=== PATIENT | female | born 1980 | race Caucasian/White ===

== ENCOUNTER 2016-11-02 14:41 | Emergency (ER) | payer OTHER ==
--- NOTE | 2016-11-02 16:46 | DIAGNOSTIC IMAGING REPORT ---
PROCEDURE: XR CHEST 1 VIEW INDICATION: NEAR SYNCOPE TECHNIQUE: Portable AP view 04:30 p.m. COMPARISON: None. FINDINGS: Lungs are clear. Heart and mediastinum are normal. Thorax is normal. Postop Stewrad rods IMPRESSION: 1. No acute disease
--- NOTE | 2016-11-02 19:23 | ED CLINICAL REPORT ---
Clinical Report - Physicians/Mid Levels [facility] [address] [place] [address] 11/02/2016 14:50 Patient: MADHAV ST Time Seen: 1442; initial patient contact, initial documentation, patient care assumed. Arrived- By private vehicle. Historian- patient. HISTORY OF PRESENT ILLNESS Chief Complaint: DIZZINESS and NEAR-SYNCOPE. Severity described as moderate at its maximum. When seen in the E.D., it was gone. Modifying factors- relieved by nothing. Not worsened by anything. This started about 2 - 3 days ago and is now gone. It was abrupt in onset and has been intermittent. Not described as a sense of rotation, movement or confusion or feeling faint or weak all over. Described as sense of falling and feeling off balance and light-headed. No nausea, vomiting or tinnitus. (states she is having these random episodes where she will be fine one minute and then the next feel like she has to brace herself because she is going out pt admitted to taking x2 325mg asa q 2 hrs every day, around the clock for chronic back pain). Similar symptoms previously: None. Recent medical care: Not recently seen/assessed. REVIEW OF SYSTEMS No headache, double vision, weakness, fainting episodes or head injury. No chest pain, palpitations, numbness, fever or difficulty breathing. All systems otherwise negative, except as recorded above. PAST HISTORY See nurses notes. ( ADDITIONAL SURGERIES: Adrenalectomy. Cardiac ablation. Cholecystectomy. Kidney repair. Laparoscopy. Pacer then removal. Spinal fusion. Thyroid Surgery. --14:28 Roz Bower R.N.). SOCIAL HISTORY Never smoker. No alcohol use or drug use. No recent travel. Residence: working here as traveling nurse, her drs are back home in [place] Is an out of state resident. FAMILY HISTORY Negative. ADDITIONAL NOTES The nursing notes have been reviewed with agreement regarding the chief complaint, HPI, ROS, PMH and patient medications and allergies. PHYSICAL EXAM Vital Signs: 11/02/2016 14:24 BP: 121/78. HR: 86. RR: 16. O2 saturation: 100%. Temp: 98.1 F. Have been reviewed as normal and appear to be correct. Appearance: Alert. No acute distress. Eyes: Pupils equal, round and reactive to light. No nystagmus. Extraocular movements normal. ENT: Normal ENT inspection. TM's normal. Moist mucous membranes. Pharynx normal. Neck: Normal inspection. Neck supple. CVS: Normal heart rate and rhythm. Heart sounds normal. Pulses normal. Respiratory: No respiratory distress. Breath sounds normal. Back: Normal inspection. (tens unit in place). Skin: Skin warm and dry. Normal skin color. No rash. Normal skin turgor. Extremities: Extremities exhibit normal ROM. No lower extremity edema. Neuro: Alert. Oriented X 3. Mood/affect normal. Speech normal. Cranial nerves normal (as tested). No cerebellar findings. No motor deficit. No sensory deficit. LABS, X-RAYS, AND EKG EKG: EKG time: (1430). No acute process. No acute ischemia. Normal EKG. Rate: 92. Normal EKG. The study has been interpreted contemporaneously by me (and dr schwartz). The EKG appears to be a good tracing. Interpretation time: 1453. Chest X-ray: Normal Chest X-Ray. (IMPRESSION: 1. No acute disease Electronically Final signed by:Mark King MD 11/02/2016 4:50:01 PM). The X-rays were interpreted by the radiologist and contemporaneously by me. Laboratory Tests: Serum Qualitative: (OLIVIA: 11/02/2016 15:05) ( MsgRcvd 11/02/2016 15:47) Final results Test Result Flag Units (Reference) , SERUM NEGATIVE CBC w Diff: (OLIVIA: 11/02/2016 15:05) ( MsgRcvd 11/02/2016 15:22) Final results Test Result Flag Units (Reference) WHITE BLOOD COUNT 13.1 H K/uL (4.5-11.5) RED BLOOD COUNT 4.59 M/uL (4.00-5.20) HEMOGLOBIN 14.1 gm/dL (12.0-16.0) HEMATOCRIT 42.6 % (36.0-46.0) MEAN CELL VOLUME 93 fL (80-100) MEAN CORPUSCULAR HGB 31 pg (26-34) MEAN CORPUSCULAR HGB CONC 33 g/dL (31-37) RED CELL DISTRIBUTION WIDTH 13.6 % (11.6-14.8) PLATELET COUNT 269 K/uL (150-400) NEUTROPHIL % 79.5 H % (50-75) LYMPH % 12.6 L % (25-40) MONO % 6.7 % (3-14) EOSINOPHIL % 0.6 % (0-4) BASOPHIL % 0.6 % (0-2) [id number]: (OLIVIA: 11/02/2016 15:05) ( [facility] 11/02/2016 17:48) Final results Test Result Flag Units (Reference) D-DIMER QUANTITATIVE 0.60 H ug/mLFEU (0.27-0.52) The primary value of this quantitative assay relates toits negative predictive value (i.e. exclusion) of pulmonaryembolism/deep vein thrombosis/DIC.Elevated levels of d-dimer may also occur with:, age, cancer, inflammation, liver disease,post-op, infection, hematoma, coronary disease, peripheralarteriopathy, bleeding disorders and thrombolytic treatment.Results should be correlated with other clinical andradiological data.Testing Methodology: Latex Immunoassay CPK: (OLIVIA: 11/02/2016 15:05) ( [facility] 11/02/2016 17:49) Final results Test Result Flag Units (Reference) CPK 73 U/L (24-260) TROPONIN I <0.05 ng/mL (0.00-1.5) TROPONIN REFERENCE RANGE:<0.1 NEGATIVE0.1-1.5 INDETERMINANT>1.5 POSITIVE Salicylate Level: (OLIVIA: 11/02/2016 15:05) ( [facility] 11/02/2016 15:28) Final results Test Result Flag Units (Reference) SALICYLATE <2.8 L mg/dL (2.8-20) BMP: (OLIVIA: 11/02/2016 15:05) ( MsgRcvd 11/02/2016 15:42) Final results Test Result Flag Units (Reference) GLUCOSE 90 mg/dL (70-110) BUN 10 mg/dL (7-18) CREATININE 0.8 mg/dL (0.6-1.3) Estimated GFR >60 mL/min Estimated GFR- >60 mL/min Note: Persistent reduction over 3 months in eGFR<60 mL/min/1.73 m2 defines CKD. Patients with eGFR values>=60 mL/min/1.73 m2 may also have CKD if evidence ofpersistent proteinuria. Additional information may be foundat www.kidney.org. SODIUM 137 mmol/L (136-145) POTASSIUM 4.1 mmol/L (3.5-5.1) CHLORIDE 102 mmol/L (98-107) CARBON DIOXIDE 29 mmol/L (21-32) CALCIUM 8.8 mg/dL (8.5-10.1) LIPASE 124 U/L (73-393) AMYLASE 48 U/L (25-115) THYROID STIMULATING HORMONE 1.060 uIU/mL (0.34-3.74) . PROGRESS AND PROCEDURES Course of Care: 16:13 11/02/16. partial results discussed so pt could have update. Patient counseled in person regarding the patient's stable condition, test results and diagnosis. 18:25. Differential Diagnosis: I considered situational stimulus, defecation, cough, sneezing, swallowing, post-prandial state, cardiac sinus hypersensitivity, sudden postural change, hypovolemia, vasodilator drugs, autonomic neuropathy, adrenal insufficiency, arrhythmia, heart block, myocardial infarction, idiopathic hypertrophic subaortic stenosis, aortic stenosis, hypoxia and hypoglycemia as a possible cause of syncope in this patient. This is a partial list of diagnoses considered. Above considerations are based on history, physical exam, laboratory data and EKG. Differential diagnosis was discussed with patient. Disposition: Discharged home in good and improved condition (19:23). Condition: good and stable. CLINICAL IMPRESSION Near syncope .12 lead EKG performed. INSTRUCTIONS Warnings: GENERAL WARNINGS: Return or contact your physician immediately if your condition worsens or changes unexpectedly, if not improving as expected, or if other problems arise. SPECIFICALLY, return if you develop chest pain, neck pain, jaw pain, shoulder pain, arm pain, back pain, fluttering sensation in your chest, lightheadedness, fainting, numbness, weakness or extreme fatigue. Follow-up: Follow up with your doctor Saturday even if well. Call for an appointment. Summary of care provided to patient. Understanding of the discharge instructions verbalized by patient. (Electronically signed by Tika Freeman A.R.N.P. 11/02/2016 20:13)
--- NOTE | 2016-11-02 19:23 | ED NURSING NOTES ---
Clinical Report - Nurses [facility] [address] [place] [address] 11/02/2016 14:50 Patient: MADHAV ST TRIAGE Triage time 14:20 Nov 02 2016. Acuity: LEVEL 3. Chief Complaint: (dizzy, tingling in left hand up to elbow and left side of face). SEPSIS SCREEN: Sepsis Screen. Negative (no infection suspected/documented). CHELE COMA SCORE: Chele Coma Scale: 15- eyes open spontaneously (4); best verbal response- oriented x 4 (5); best motor response- obeys commands (6). --14:30 Roz Bower R.N. 14:24 11/02/16. BP: 121/78. HR: 86. RR: 16. O2 saturation: 100%. Temp: 98.1 F. Pain level now 0/10. --14:30 Roz Bower R.N. Weight: 58.9 kg stated. Height/Length: 64 inches Per Patient. BMI: 22.3. --14:29 Roz Bower R.N. Medications Corlanor. --14:26 Roz Bower R.N. Medication/allergy information source: the patient. --14:30 Roz Bower R.N. Allergies Acetaminophen. NSAIDs. --14:26 Roz Bower R.N. Penicillins. --14:26 Roz Bower R.N. Iodine. --14:26 Roz Bower R.N. Zofran. --14:28 Roz Bower R.N. Vitamin D. --14:28 Roz Bower R.N. Angeles B. --14:28 Roz Bower R.N. History Historian: patient. This is a recurrent problem. (3 days). ( tingling is new this morning). No fever, weakness, cough, difficulty breathing or skin rash. Denies muscle aches. Treatment SITE RELIABILITY ENGINEER: None. PAST MEDICAL HX: Immunizations: seasonal influenza. SOCIAL HX: Never smoker. No alcohol use or drug use. No infectious disease exposure. ABUSE ASSESSMENT: No report of abuse. SELF HARM ASSESSMENT: A self harm assessment was performed. The patient answered "no" to the question "Have you recently felt down, depressed, or hopeless?", "Have you noticed less interest or pleasure in doing things?", "Do you have thoughts of harming or killing yourself?", "Are you here because you tried to hurt yourself?", "Have you ever tried to hurt yourself before today?", "Have you recently had thoughts about harming or killing others?" and "Do you have any dangerous items in your possession?". FALL RISK ASSESSMENT: Fall risk assessment completed. No fall risk identified. NUTRITIONAL RISK ASSESSMENT: The nutritional risk assessment revealed no deficiencies. FUNCTIONAL ASSESSMENT: Functional assessment: no impairments noted. LEARNING NEEDS ASSESSMENT: The learning needs assessment revealed no barriers. SKIN INTEGRITY ASSESSMENT: Skin integrity risk assessment completed. No skin integrity risk identified. --14:30 Roz Bower R.N. ADDITIONAL SURGERIES: Adrenalectomy. Cardiac ablation. Cholecystectomy. Kidney repair. Laparoscopy. Pacer then removal. Spinal fusion. Thyroid Surgery. --14:28 Roz Bower R.N. Interventions ID band on patient. --14:30 Roz Bower R.N. PHYSICAL ASSESSMENT 14:30 11/02/16. To room via stretcher. GENERAL / NEURO / PSYCH: Alert. Oriented X 4. HEENT: Pupils equal, round and reactive to light. No facial asymmetry noted. ( tingling left side of face). Mucous membranes are pink. RESPIRATORY: Respirations not labored. Breath sounds within normal limits. CVS: Normal sinus rhythm noted. Capillary refill less than 2 seconds. Pulses within normal limits. GI / : Abdomen soft. SKIN: Skin intact. Skin is warm and dry. Normal skin turgor. --14:30 Roz Bower R.N. NURSING PROGRESS NOTES 14:31 11/02/16. Cardiac rhythm: normal sinus rhythm. The initial plan of care for this patient includes an assessment with efforts to address the patient's anxiety; the presence of pain; impairment of the cardiovascular system. This plan of care was discussed with the patient. cocoa bean cleaner, pulse oximeter and NIBP monitor placed on patient; humanities coordinator- Lead II; monitor alarms on. EKG time: (14:30). EKG was performed by a tech and shown to the ED physician. Patient gowned. Reassurance given. Two patient identifiers checked. Call light placed in reach. Side rails up x 1. Bed placed in lowest position. Patient ready for evaluation. --14:32 Roz Bower R.N. EKG was performed by a tech and shown to the ED physician. --14:52 Kunal Marrero 15:10 11/02/2016 Site #1 started via IV in the left antecubital space with an 20g angiocath, with aseptic technique and good blood return; one attempt. Blood drawn: rainbow set. Labeled in the presence of the patient and sent to the lab. Saline lock flushed with 10 mL saline. --15:13 Roz Bower R.N. 15:25 11/02/16. Cardiac rhythm: normal sinus rhythm. The patient is calm and resting quietly. Overall patient status is the same- she states feels the same. RESPIRATORY: No respiratory distress. SKIN: Skin is warm and dry. --15:25 Roz Bower R.N. 15:25 11/02/16. BP: 119/71. HR: 77. RR: 16. O2 saturation: 100%. Pain level now 5/10. --15:25 Roz Bower R.NBrittanie 19:12 11/02/16. Cardiac rhythm: normal sinus rhythm. The patient is calm and resting quietly. RESPIRATORY: Breath sounds normal. CVS: Heart rhythm abnormal. SKIN: Skin is warm and dry. Skin color within normal limits. --19:12 Roz Bower R.NBrittanie 19:12 11/02/16. BP: 109/84. HR: 83. RR: 16. O2 saturation: 100%. Pain level now 0/10. --19:12 Roz Bower R.N. DISPOSITION / DISCHARGE 19:34 11/02/2016 Site #1 removed upon discharge. Pressure dressing applied. --19:34 Rita Mtz R.N. 19:34 11/02/2016 IV Saline Lock Drip IV Discontinued: upon discharge. --19:34 Rita Mtz R.N. Departure time: 1936 pm. Condition at departure: improved and stable. No learning barriers present. Discharge instructions provided and reviewed with the patient. Patient verbalized understanding. Written instructions provided in Swazi. The patient was discharged home. She left the Emergency Department ambulatory and via private vehicle. Patient driving. --19:36 Rita Mtz R.N. 19:35 11/02/16. BP: deferred. --19:36 Rita Mtz R.N. Locked/Released at 11/03/2016 0:09 by Roz Bower R.N.
--- NOTE | 2016-11-02 19:23 | ED NURSING NOTES ---
Clinical Report - Nurses [facility] [address] [place] [address] 11/02/2016 14:50 Patient: MADHAV ST TRIAGE Triage time 14:20 Nov 02 2016. Acuity: LEVEL 3. Chief Complaint: (dizzy, tingling in left hand up to elbow and left side of face). SEPSIS SCREEN: Sepsis Screen. Negative (no infection suspected/documented). CHELE COMA SCORE: Chele Coma Scale: 15- eyes open spontaneously (4); best verbal response- oriented x 4 (5); best motor response- obeys commands (6). --14:30 Roz Bower R.N. 14:24 11/02/16. BP: 121/78. HR: 86. RR: 16. O2 saturation: 100%. Temp: 98.1 F. Pain level now 0/10. --14:30 Roz Bower R.N. Weight: 58.9 kg stated. Height/Length: 64 inches Per Patient. BMI: 22.3. --14:29 Roz Bower R.N. Medications Corlanor. --14:26 Roz Bower R.N. Medication/allergy information source: the patient. --14:30 Roz Bower R.N. Allergies Acetaminophen. NSAIDs. --14:26 Roz Bower R.N. Penicillins. --14:26 Roz Bower R.N. Iodine. --14:26 Roz Bower R.N. Zofran. --14:28 Roz Bower R.N. Vitamin D. --14:28 Roz Bower R.N. Angeles B. --14:28 Roz Bower R.N. History Historian: patient. This is a recurrent problem. (3 days). ( tingling is new this morning). No fever, weakness, cough, difficulty breathing or skin rash. Denies muscle aches. Treatment CURATOR: None. PAST MEDICAL HX: Immunizations: seasonal influenza. SOCIAL HX: Never smoker. No alcohol use or drug use. No infectious disease exposure. ABUSE ASSESSMENT: No report of abuse. SELF HARM ASSESSMENT: A self harm assessment was performed. The patient answered "no" to the question "Have you recently felt down, depressed, or hopeless?", "Have you noticed less interest or pleasure in doing things?", "Do you have thoughts of harming or killing yourself?", "Are you here because you tried to hurt yourself?", "Have you ever tried to hurt yourself before today?", "Have you recently had thoughts about harming or killing others?" and "Do you have any dangerous items in your possession?". FALL RISK ASSESSMENT: Fall risk assessment completed. No fall risk identified. NUTRITIONAL RISK ASSESSMENT: The nutritional risk assessment revealed no deficiencies. FUNCTIONAL ASSESSMENT: Functional assessment: no impairments noted. LEARNING NEEDS ASSESSMENT: The learning needs assessment revealed no barriers. SKIN INTEGRITY ASSESSMENT: Skin integrity risk assessment completed. No skin integrity risk identified. --14:30 Roz Bower R.N. ADDITIONAL SURGERIES: Adrenalectomy. Cardiac ablation. Cholecystectomy. Kidney repair. Laparoscopy. Pacer then removal. Spinal fusion. Thyroid Surgery. --14:28 Roz Bower R.N. Interventions ID band on patient. --14:30 Roz Bower R.N. PHYSICAL ASSESSMENT 14:30 11/02/16. To room via stretcher. GENERAL / NEURO / PSYCH: Alert. Oriented X 4. HEENT: Pupils equal, round and reactive to light. No facial asymmetry noted. ( tingling left side of face). Mucous membranes are pink. RESPIRATORY: Respirations not labored. Breath sounds within normal limits. CVS: Normal sinus rhythm noted. Capillary refill less than 2 seconds. Pulses within normal limits. GI / : Abdomen soft. SKIN: Skin intact. Skin is warm and dry. Normal skin turgor. --14:30 oRz Bower R.N. NURSING PROGRESS NOTES 14:31 11/02/16. Cardiac rhythm: normal sinus rhythm. The initial plan of care for this patient includes an assessment with efforts to address the patient's anxiety; the presence of pain; impairment of the cardiovascular system. This plan of care was discussed with the patient. permaculture contractor, pulse oximeter and NIBP monitor placed on patient; cardiac cath tech- Lead II; monitor alarms on. EKG time: (14:30). EKG was performed by a tech and shown to the ED physician. Patient gowned. Reassurance given. Two patient identifiers checked. Call light placed in reach. Side rails up x 1. Bed placed in lowest position. Patient ready for evaluation. --14:32 Roz Bower R.N. EKG was performed by a tech and shown to the ED physician. --14:52 Kunal Marrero 15:10 11/02/2016 Site #1 started via IV in the left antecubital space with an 20g angiocath, with aseptic technique and good blood return; one attempt. Blood drawn: rainbow set. Labeled in the presence of the patient and sent to the lab. Saline lock flushed with 10 mL saline. --15:13 Roz Bower R.N. 15:25 11/02/16. Cardiac rhythm: normal sinus rhythm. The patient is calm and resting quietly. Overall patient status is the same- she states feels the same. RESPIRATORY: No respiratory distress. SKIN: Skin is warm and dry. --15:25 Roz Bower R.N. 15:25 11/02/16. BP: 119/71. HR: 77. RR: 16. O2 saturation: 100%. Pain level now 5/10. --15:25 Roz Bower R.NBrittanie 19:12 11/02/16. Cardiac rhythm: normal sinus rhythm. The patient is calm and resting quietly. RESPIRATORY: Breath sounds normal. CVS: Heart rhythm abnormal. SKIN: Skin is warm and dry. Skin color within normal limits. --19:12 Roz Bower R.NBrittanie 19:12 11/02/16. BP: 109/84. HR: 83. RR: 16. O2 saturation: 100%. Pain level now 0/10. --19:12 Roz Bower R.N. DISPOSITION / DISCHARGE 19:34 11/02/2016 Site #1 removed upon discharge. Pressure dressing applied. --19:34 Rita Mtz R.N. 19:34 11/02/2016 IV Saline Lock Drip IV Discontinued: upon discharge. --19:34 Rita Mtz R.N. Departure time: 1936 pm. Condition at departure: improved and stable. No learning barriers present. Discharge instructions provided and reviewed with the patient. Patient verbalized understanding. Written instructions provided in Niuean. The patient was discharged home. She left the Emergency Department ambulatory and via private vehicle. Patient driving. --19:36 Rita Mtz R.N. 19:35 11/02/16. BP: deferred. --19:36 Rita Mtz R.N. Locked/Released at 11/03/2016 0:09 by Roz Bower R.N.
--- NOTE | 2016-11-02 19:23 | ED ORDER SUMMARY ---
..... Patient: MADHAV ST OrderSheet [facility] VisitID: [id number] [place] [address] 36y, F Registration Date/Time: 11/02/2016 ORDER SHEET Weight: 58.9 kg (stated) Allergies: Acetaminophen, NSAIDs, Penicillins, Iodine, Zofran, Vitamin D, Angeles B GENERAL ORDERS: EKG - ER Stat (14:42 11/02/2016 EInderbitzen R.N. verbal order read back to HBivens A.R.N.P.) (14:52 LTapper) Supplier Quality Engineering Manager (Continuous) (14:52 11/02/2016 HBivens A.R.N.P.) (14:59 LTapper) CBC w Diff Urgent (14:52 11/02/2016 HBivens A.R.N.P.) (Ack 14:59 LTapper) (15:50 EInderbitzen R.N.) BMP Urgent (14:52 11/02/2016 HBivens A.R.N.P.) (Ack 14:59 LTapper) (15:50 EInderbitzen R.N.) Amylase Urgent (14:52 11/02/2016 HBivens A.R.N.P.) (Ack 14:59 LTapper) (15:50 EInderbitzen R.N.) Lipase Urgent (14:52 11/02/2016 HBivens A.R.N.P.) (Ack 14:59 LTapper) (15:50 EInderbitzen R.N.) Serum Qualitative Urgent (14:52 11/02/2016 HBivens A.R.N.P.) (Ack 14:59 LTapper) (15:50 EInderbitzen R.N.) TSH Urgent (14:52 11/02/2016 HBivens A.R.N.P.) (Ack 14:59 LTapper) (15:50 EInderbitzen R.N.) Salicylate Level Urgent (14:52 11/02/2016 HBivens A.R.N.P.) (Ack 14:59 LTapper) (15:50 Mark R.N.) CPK Urgent (16:12 11/02/2016 HBivens A.R.N.P.) (Ack 16:18 LTapper) (19:35 ABarnum R.N.) Troponin-I Urgent (16:12 11/02/2016 HBivens A.R.N.P.) (Ack 16:18 LTapper) (19:35 ABarnum R.N.) D-Dimer Urgent (16:12 11/02/2016 HBivens A.R.N.P.) (Ack 16:18 LTapper) (19:35 ABarnum R.N.) Chest 1V Urgent (16:13 11/02/2016 HBivens A.R.N.P.) (Ack 16:18 LTapper) (18:54 MCampbell) MEDICATION ORDERS: IV FLUIDS: IV Saline Lock (14:52 11/02/2016 HBivens A.R.N.P.) (15:16 EInderbitzen R.N.) ORDER SHEET NOTES: [Electronically signed by Tika FreemanR.N.P. (20:13 11/02/2016)] [Electronically signed by Roz Bower R.N. (00:09 11/03/2016)] [Electronically locked/signed by Roz Bower R.N. (00:09 11/03/2016)]
--- NOTE | 2016-11-02 19:23 | ED ORDER SUMMARY ---
..... Patient: MADHAV ST OrderSheet [facility] VisitID: [id number] [place] [address] 36y, F Registration Date/Time: 11/02/2016 ORDER SHEET Weight: 58.9 kg (stated) Allergies: Acetaminophen, NSAIDs, Penicillins, Iodine, Zofran, Vitamin D, Angeles B GENERAL ORDERS: EKG - ER Stat (14:42 11/02/2016 EInderbitzen R.N. verbal order read back to HBivens A.R.N.P.) (14:52 LTapper) Autocad Electrical Designer (Continuous) (14:52 11/02/2016 HBivens A.R.N.P.) (14:59 LTapper) CBC w Diff Urgent (14:52 11/02/2016 HBivens A.R.N.P.) (Ack 14:59 LTapper) (15:50 EInderbitzen R.N.) BMP Urgent (14:52 11/02/2016 HBivens A.R.N.P.) (Ack 14:59 LTapper) (15:50 EInderbitzen R.N.) Amylase Urgent (14:52 11/02/2016 HBivens A.R.N.P.) (Ack 14:59 LTapper) (15:50 EInderbitzen R.N.) Lipase Urgent (14:52 11/02/2016 HBivens A.R.N.P.) (Ack 14:59 LTapper) (15:50 EInderbitzen R.N.) Serum Qualitative Urgent (14:52 11/02/2016 HBivens A.R.N.P.) (Ack 14:59 LTapper) (15:50 EInderbitzen R.N.) TSH Urgent (14:52 11/02/2016 HBivens A.R.N.P.) (Ack 14:59 LTapper) (15:50 EInderbitzen R.N.) Salicylate Level Urgent (14:52 11/02/2016 HBivens A.R.N.P.) (Ack 14:59 LTapper) (15:50 Mark R.N.) CPK Urgent (16:12 11/02/2016 HBivens A.R.N.P.) (Ack 16:18 LTapper) (19:35 ABarnum R.N.) Troponin-I Urgent (16:12 11/02/2016 HBivens A.R.N.P.) (Ack 16:18 LTapper) (19:35 ABarnum R.N.) D-Dimer Urgent (16:12 11/02/2016 HBivens A.R.N.P.) (Ack 16:18 LTapper) (19:35 ABarnum R.N.) Chest 1V Urgent (16:13 11/02/2016 HBivens A.R.N.P.) (Ack 16:18 LTapper) (18:54 MCampbell) MEDICATION ORDERS: IV FLUIDS: IV Saline Lock (14:52 11/02/2016 HBivens A.R.N.P.) (15:16 EInderbitzen R.N.) ORDER SHEET NOTES: [Electronically signed by Tika FreemanR.N.P. (20:13 11/02/2016)] [Electronically signed by Roz Bower R.N. (00:09 11/03/2016)] [Electronically locked/signed by Roz Bower R.N. (00:09 11/03/2016)]
--- NOTE | 2016-11-03 00:10 | ED MED RECONCILIATION SUMMARY ---
Patient: MADHAV ST Medication Reconciliation Report [facility] VisitID: [id number] [address] [place] [address] 36y, F Registration Date/Time: 11/02/2016 Weight: 58.9 kg Height/Length: 64 in. BMI: 22.3 ALLERGIES: Acetaminophen, Iodine, Angeles B, NSAIDs, Penicillins, Vitamin D, Zofran The patient's Home Medications are listed below: THE FOLLOWING MEDICATIONS NEED TO BE RECONCILED: Corlanor The source(s) of the original Home Medication information: patient The following Medications were given to the patient in the Emergency Department: None. The following Medications were prescribed to the patient: None.
--- NOTE | 2016-11-03 00:10 | ED MED RECONCILIATION SUMMARY ---
Patient: MADHAV ST Medication Reconciliation Report [facility] VisitID: [id number] [address] [place] [address] 36y, F Registration Date/Time: 11/02/2016 Weight: 58.9 kg Height/Length: 64 in. BMI: 22.3 ALLERGIES: Acetaminophen, Iodine, Angeles B, NSAIDs, Penicillins, Vitamin D, Zofran The patient's Home Medications are listed below: THE FOLLOWING MEDICATIONS NEED TO BE RECONCILED: Corlanor The source(s) of the original Home Medication information: patient The following Medications were given to the patient in the Emergency Department: None. The following Medications were prescribed to the patient: None.
--- NOTE | 2016-11-03 00:10 | ED MAR SUMMARY ---
..... Medication Administration Record [facility] [address] [place], [place] [id number] Patient: MADHAV ST Visit ID: [id number] 36y, F Weight: 58.9 kg Height/Length: 64 in BMI: 22.3 ALLERGIES: Angeles B, Vitamin D, Zofran, Iodine, Penicillins, NSAIDs, Acetaminophen
--- NOTE | 2016-11-03 00:10 | ED DISCHARGE INSTRUCTIONS ---
Patient: MADHAV ST General Instructions [facility] VisitID: [id number] [place] [address] 36y, F Registration Date/Time: 11/02/2016 Near syncope .12 lead EKG performed. INSTRUCTIONS Warnings: GENERAL WARNINGS: Return or contact your physician immediately if your condition worsens or changes unexpectedly, if not improving as expected, or if other problems arise. SPECIFICALLY, return if you develop chest pain, neck pain, jaw pain, shoulder pain, arm pain, back pain, fluttering sensation in your chest, lightheadedness, fainting, numbness, weakness or extreme fatigue. Follow-up: Follow up with your doctor Saturday even if well. Call for an appointment. Summary of care provided to patient. Understanding of the discharge instructions verbalized by patient. ADDITIONAL INFORMATION Near-Fainting:Uncertain Cause Fainting (syncope) is a temporary loss of consciousness ("passing out"). It occurs when blood flow to the brain is reduced. Near-fainting ("near-syncope") is like fainting, but you do not fully "pass out." The common minor causes of near fainting include sudden fear, pain, emotional stress, overexertion, or quickly standing up after sitting or lying for a long time. The more serious causes for near fainting are due to either a very slow or very fast heart beat, dehydration, anemia, blood loss, problems related to the heart, or taking too much high blood pressure medicine. The exact cause of your episode is not certain. More tests may be required. Therefore, it is important that you follow up with your doctor as advised. Home Care: 1) Rest today. Resume your normal activities as soon as you are feeling back to normal. 2) If you become light-headed or dizzy, lie down right away or sit with your head between your knees. 3) Because we do not know the exact cause of your near fainting spell, another spell could occur without warning. Therefore, do not drive a car or use dangerous equipment. D o not take a bath alone (use a shower instead). Do not swim alone. You can resume these activities when your doctor says that you are no longer in danger of having a near fainting spell. 4) Stay well hydrated by drinking enough fluid each day. Follow Up with your doctor as instructed. Get Prompt Medical Attention if any of the following occur: -- Another fainting spell occurs, and it is not explained by the common causes listed above -- Chest, arm, neck, jaw, back or abdominal pain -- Shortness of breath -- Weakness, tingling or numbness in one side of the face, one arm or leg -- Slurred speech, confusion, trouble walking or seeing -- Seizure -- Blood in vomit, stools (black or red color) -- (In women) unexpected vaginal bleeding You have been given the following additional information: Near Syncope, Unknown (Electronically signed by Tika Freeman A.R.N.P. 11/02/2016 20:13)
--- NOTE | 2016-11-03 00:10 | ED MAR SUMMARY ---
..... Medication Administration Record [facility] [address] [place], [place] [id number] Patient: MADHAV ST Visit ID: [id number] 36y, F Weight: 58.9 kg Height/Length: 64 in BMI: 22.3 ALLERGIES: Angeles B, Vitamin D, Zofran, Iodine, Penicillins, NSAIDs, Acetaminophen
== END 2016-11-02 19:36 | disposition home or self-care (01) ==
LOC: ED SRH 14:41
DX: R55 Syncope and collapse (principal); Z88.0 Allergy status to penicillin; Z88.6 Allergy status to analgesic agent; Z88.8 Allergy status to other drugs, medicaments and biological substances
CPT/HCPCS: 90047; 90616; 91556; 92235; 92530; 92610; 92780; 93140; 95059; 98428

== ENCOUNTER 2016-11-14 16:21 | Outpatient (CLI) | payer OTHER ==
--- NOTE | 2016-11-14 18:35 | DIAGNOSTIC IMAGING REPORT ---
PROCEDURE: MR THORACIC SPINE W/WO CONT INDICATION: POST T-SPINE SURGERY TECHNIQUE: Noncontrast T1, T2, and STIR sagittal images. T1 and T2 STIR axial images. COMPARISON: Chest film 11/02/2015 FINDINGS: Steward rods and screws are in place in the lower thoracic spine. The screws are in good position. There is no evidence of canal compromise. The spinal cord is of normal in size and signal intensity. The paraspinal soft tissues are normal. No evidence of abnormal fluid collections. IMPRESSION: 1. Normal lower thoracic spine status post Steward rods and screws.
== END 2016-11-14 23:00 ==
LOC: MRI SRH 16:21
DX: Z98.890 Other specified postprocedural states (principal)

== ENCOUNTER 2016-11-16 15:32 | Outpatient (CLI) | payer OTHER ==
--- NOTE | 2016-11-20 10:43 | DIAGNOSTIC IMAGING REPORT ---
PROCEDURE: MR THORACIC SPINE W/O CONT (Follow-up incomplete study 11/14/2016). INDICATION: Follow-up incomplete study on 11/14/2016. The patient has history of thoracolumbar decompression / fusion (March 2016). The patient complains of back pain after lifting injury (reportedly 3 months ago). TECHNIQUE: Sagittal localizer images. T2 and STIR sagittal images were obtained. COMPARISON: Comparison is made to MRI thoracic spine without with contrast on 11/14/2016. FINDINGS: Spinal cord is normal. The upper thoracic spine levels are normal (T1-2, T2-3, T3-4, T4-5, T5-6). There are mild degenerative change of the mid thoracic spine: T6-7: Mildly chronically bulging disc with Schmorl's nodes and vertebral endplates. No evidence of canal compromise. T7-8: Mildly chronically bulging disc, no evidence of canal compromise. T8-9: Minimal degenerative changes. T9-10: Mildly chronically bulging disc. T10-L1 levels: Status post T10-L1 decompressive laminectomy and posterior fusion (metal artifact suggest posterior metal plates with bilateral pedicle screws at T10, T11, L1, and unilateral right pedicle screw at T12). While metal artifact obscures some of the detail, there is no evidence of significant canal compromise at these levels. There is no evidence of an occult fracture, disc herniation, or significant canal compromise. IMPRESSION: 1. Completion of MRI thoracic spine on 11/14/2016 (NO CHARGE FOR TODAY'S STUDY). 2. Status post T10-L1 decompressive laminectomy and posterior fusion with normal postoperative appearance. No evidence of canal compromise at these levels. 3. Mild degenerative change of the mid thoracic spine with mildly chronically bulging discs and Schmorl's nodes. 4. Normal thoracic spinal cord. 5. No evidence of occult fracture. No evidence of disc herniation and no evidence of significant canal compromise. 6. Findings discussed with the patient and called to Dr. Manjit Bustillo (voice mail).
== END 2016-11-16 23:00 ==
LOC: MRI SRH 15:32
DX: M51.44 Schmorl's nodes, thoracic region (principal); M51.24 Other intervertebral disc displacement, thoracic region; Z98.1 Arthrodesis status